=== PATIENT | female | born 1980 | race Caucasian/White ===

== ENCOUNTER 2017-01-20 01:00 | Emergency (ER) | payer SELFPAY ==
--- NOTE | 2017-01-20 01:06 | ED Physician Chart ---
Chief Complaint/HPI - Patient Information Date Seen:: 01/20/17 Time Seen:: 01:03 Chief Complaint:: flank pain History of Present Illness:: 36-year-old female with history of recent UTI taking antibiotics and Pyridium, complains of acute, severe, constant, aching, 10 out of 10, radiating to the suprapubic region, right flank pain that started about 2 hours prior to arrival. Took Tylenol but that did not help the pain. Historian:: Patient Review:: Nurse's Note Reviewed Review of Systems - Review of Systems Other: Complete system review otherwise unremarkable except as noted in HPI. Past Medical History - Past Medical History Past Medical History: HTN, DM, Dyslipidemia Family History: None Social History: Non Smoker, No Alcohol, No Drug Use Surgical History: None Psychiatricy History: None Medication: Reviewed Family Medical History - Family Member Mother History Unknown: Yes Ethnicity: Physical Exam - Physical Examination Other:: INITIAL VITAL SIGNS: Reviewed by me GENERAL: Alert and interactive. In moderate distress due to pain. HEAD: Head is normocephalic and atraumatic EYES: EOMI. . No scleral icterus. No conjunctival injection ENT: Moist mucous membranes. NECK: Supple. No masses. Full range of motion RESPIRATORY: No tachypnea. Clear breath sounds bilaterally. No wheezing, rales, or rhonchi CV: Regular rate and rhythm. No murmurs, rubs, or gallops ABDOMEN: Soft, non-distended, generalized tenderness to palpation along the suprapubic and right quadrant areas. No guarding. No rebound. No masses. EXTREMITIES: No deformity. No cyanosis. No edema. SKIN: Warm and dry. No obvious rashes. NEUROLOGIC: Alert and oriented. Face is symmetric. Speech is normal. Moves all extremities equally. Motor and sensory distally intact. Labs/Radiology/EKG Results - Lab Results Results: Lab Results 01/20/17 01/20/17 01/20/17 Range/Units 01:21 01:21 01:21 WBC 9.3 (4.8-10.8) Th/cmm RBC 4.58 (3.80-5.10) Mil/cmm Hgb 13.0 (11.7-15.5) gm/dL Hct 38.4 (35.0-45.0) % MCV 83.7 (81-100) fl MCH 28.3 (27.0-31.0) pg MCHC Differential 33.9 (28.0-36.0) pg RDW 12.3 (11.5-20.0) % Plt Count 166 (150-400) Th/cmm MPV 8.9 fl Band Neutrophils % 3 (0-10) % Neutrophils (Manual) 80 (40-80) % Lymphocytes 10 L (20-50) % Monocytes 7 (2-10) % Platelet Estimate ADEQUATE (NORMAL) Sodium 133 L (136-145) mEq/L Potassium 3.9 (3.5-5.1) mEq/L Chloride 101 (98-107) mEq/L Carbon Dioxide 22.7 (21.0-31.0) mEq/L Anion Gap 13.2 (7.0-16.0) BUN 17 (7-25) mg/dL Creatinine 0.9 (0.6-1.2) mg/dL Est GFR ( Amer) > 60.0 (>90) ml/min Est GFR (Non-Af Amer) > 60.0 ml/min BUN/Creatinine Ratio 18.9 Glucose 119 H (70-105) mg/dL Whole Bld Lactic Acid (0.60-1.99) mmol/L Calcium 9.5 (8.6-10.3) mg/dL Total Bilirubin 0.8 (0.3-1.0) mg/dL AST 38 (13-39) U/L ALT 48 (7-52) U/L Alkaline Phosphatase 72 (34-104) U/L Total Protein 7.5 (6.0-8.3) gm/dL Albumin 4.1 (3.7-5.3) gm/dL Globulin 3.4 gm/dL Albumin/Globulin Ratio 1.2 (1.0-1.8) Lipase (11-82) U/L Serum , Qual NEGATIVE (NEGATIVE) 01/20/17 01/20/17 Range/Units 01:21 01:21 WBC (4.8-10.8) Th/cmm RBC (3.80-5.10) Mil/cmm Hgb (11.7-15.5) gm/dL Hct (35.0-45.0) % MCV (81-100) fl MCH (27.0-31.0) pg MCHC Differential (28.0-36.0) pg RDW (11.5-20.0) % Plt Count (150-400) Th/cmm MPV fl Band Neutrophils % (0-10) % Neutrophils (Manual) (40-80) % Lymphocytes (20-50) % Monocytes (2-10) % Platelet Estimate (NORMAL) Sodium (136-145) mEq/L Potassium (3.5-5.1) mEq/L Chloride (98-107) mEq/L Carbon Dioxide (21.0-31.0) mEq/L Anion Gap (7.0-16.0) BUN (7-25) mg/dL Creatinine (0.6-1.2) mg/dL Est GFR ( Amer) (>90) ml/min Est GFR (Non-Af Amer) ml/min BUN/Creatinine Ratio Glucose (70-105) mg/dL Whole Bld Lactic Acid 1.37 (0.60-1.99) mmol/L Calcium (8.6-10.3) mg/dL Total Bilirubin (0.3-1.0) mg/dL AST (13-39) U/L ALT (7-52) U/L Alkaline Phosphatase (34-104) U/L Total Protein (6.0-8.3) gm/dL Albumin (3.7-5.3) gm/dL Globulin gm/dL Albumin/Globulin Ratio (1.0-1.8) Lipase 14 (11-82) U/L Serum , Qual (NEGATIVE) - Radiology Results Results: CT abdomen and pelvis preliminary report per radiology ED Septic Shock - . Is Septic Shock (SBP<90, OR Lactate>4 mmol\L) present?: No Reassessment (Disposition) - Reassessment Reassessment:: The patient eloped. Labs were essentially unremarkable. Apparently she felt better. She said she was going to use the restroom and took her daughter with her and they both walked out. Security noted with a both ambulated out the front door and were packed out by a vehicle outside. Reassessment Condition:: Improved - Diagnosis Diagnosis:: Right flank pain Diabetes mellitus type 2 Hypertension - Patient Disposition Discharge/Transfer:: Elope/AWOL Time:: 02:05 Condition at Disposition:: Improved ED Discharge Plan - Patient Disposition Admit/Discharge/Transfer: PATIENT ELOPED Condition at Disposition: Improved
[2017-01-20] MEDS ORDERED: Dexamethasone Sodium Phos 4 mg/mL Vial IVP STA (01:16)
[2017-01-20] MEDS ORDERED: Prochlorperazine 5 mg/mL 2mL Vial IVP STA (01:16)
[2017-01-20] MEDS ORDERED: Sodium Chloride 0.9% 1,000 ML IV ONE (01:16)
[2017-01-20 01:38] LABS: HEMATOCRIT 38.4 % (35.0-45.0); MEAN CELL VOLUME 83.7 fl (81-100); MEAN CORPUSCULAR HEMOGLOBIN 28.3 pg (27.0-31.0); MEAN CORPUSCULAR HGB CONC 33.9 pg (28.0-36.0); MEAN PLATELET VOLUME 8.9 fl; PLATELET COUNT 166 Th/cmm (150-400); RED BLOOD COUNT 4.58 Mil/cmm (3.80-5.10); RED CELL DISTRIBUTION WIDTH 12.3 % (11.5-20.0); WHITE BLOOD COUNT 9.3 Th/cmm (4.8-10.8)
[2017-01-20 01:51] LABS: ALB/GLOB RATIO 1.2 (1.0-1.8); ALKALINE PHOSPHATASE 72 U/L (34-104); ANION GAP 13.2 (7.0-16.0); BILIRUBIN,TOTAL 0.8 mg/dL (0.3-1.0); BUN - UREA NITROGEN 17 mg/dL (7-25); BUN/CREATININE RATIO 18.9; CALCIUM SERUM 9.5 mg/dL (8.6-10.3); CARBON DIOXIDE 22.7 mEq/L (21.0-31.0); CHLORIDE 101 mEq/L (98-107); CREATININE - SERUM 0.9 mg/dL (0.6-1.2); GLUCOSE 119 mg/dL (70-105); POTASSIUM SERUM 3.9 mEq/L (3.5-5.1); SGOT 38 U/L (13-39); SGPT/ALT 48 U/L (7-52); SODIUM SERUM 133 mEq/L (136-145)
[2017-01-20 01:55] LABS: TOTAL CELLS COUNTED 100
[2017-01-20 01:59] LABS: BAND NEUTROPHILE 3 % (0-10); NEUTROPHILS 80 % (40-80); PLATELET ESTIMATE ADEQUATE (NORMAL)
[2017-01-20 02:06] LABS: URINE BILIRUBIN NEGATIVE (NEGATIVE); URINE BLOOD MODERATE (NEGATIVE); URINE COLOR YELLOW; URINE GLUCOSE (UA) NEGATIVE (NEGATIVE); URINE KETONE NEGATIVE (NEGATIVE); URINE PROTEIN TRACE mg/dL (NEGATIVE); URINE UROBILINOGEN 0.2 E.U./dL (0.2 - 1.0)
[2017-01-20 02:07] LABS: URINE BACTERIA MODERATE /hpf (NONE SEEN); URINE EPITHELIAL CELLS MODERATE /lpf (FEW); URINE WBC 50-100 /hpf (0-5)
[2017-01-20 02:19] LABS: AMPHETAMINE URINE NEGATIVE (NEGATIVE); BARBITURATES URINE NEGATIVE (NEGATIVE)
== END 2017-01-20 01:50 | disposition left against medical advice (07) ==
LOC: ER 01:00
DX: R10.9 Unspecified abdominal pain (principal); E11.9 Type 2 diabetes mellitus without complications; I10 Essential (primary) hypertension; E78.5 Hyperlipidemia, unspecified
CPT/HCPCS: 36415-UA; 80053-TC; 81001-TC; 81025-TC; 83605; 83690-TC; 85007-TC; 85027-TC; 87086-90; Z7502